=== PATIENT | female | born 1990 ===

== ENCOUNTER 2022-09-18 16:04 | Emergency (ER) | payer MEDICAID ==
[~2022-09-18] VITALS: Ht 152.4 cm; Wt 81.8 kg
[2022-09-18 16:06] VITALS: BP 128/79
== END 2022-09-18 18:02 | disposition left against medical advice (07) ==
LOC: EMS 16:17
DX: K62.89 Other specified diseases of anus and rectum (principal); Z53.21 Procedure and treatment not carried out due to patient leaving prior to being seen by health care provider